=== PATIENT | female | born 1950 | race Caucasian/White ===

== ENCOUNTER 2020-11-27 13:59 | Emergency (ER) | payer MEDICARE ==
[~2020-11-27 13:59] MED LIST: PHENERGAN 25 MG25 M1 PO; ZOFRAN ODT 4 MG4 MG SL; ZOFRAN4 MG PO
[2020-11-27 16:07] LABS: HEMOGLOBIN 15.5 gm/dl (12.3-15.3); RED BLOOD COUNT 4.99 M/UL (4.00-5.10); WHITE BLOOD COUNT 7.9 K/UL (4.5-11.0)
[2020-11-27 16:29] LABS: BUN/CREATININE RATIO 17 (0-10)
== END 2020-11-27 18:06 | disposition home or self-care (01) ==
LOC: ER1 13:59
PROVIDERS: Emergency Medicine
DX: R07.89 Other chest pain (principal); R00.0 Tachycardia, unspecified; Z20.822 Contact with and (suspected) exposure to COVID-19; I10 Essential (primary) hypertension; E78.5 Hyperlipidemia, unspecified; Z90.710 Acquired absence of both cervix and uterus
CPT/HCPCS: 36415; 71045; 80053; 82550; 82553; 83874; 84439; 84443; 84484; 85025; 85379; 93005; 99285; U0002

== ENCOUNTER 2021-05-29 04:30 | Emergency (ER) | payer MEDICARE ==
[2021-05-29 05:11] LABS: HEMOGLOBIN 13.9 gm/dl (12.3-15.3); RED BLOOD COUNT 4.56 M/UL (4.00-5.10); WHITE BLOOD COUNT 5.6 K/UL (4.5-11.0)
[2021-05-29 05:41] LABS: BUN/CREATININE RATIO 22 (0-10)
[2021-05-29] MEDS ORDERED: ZOFRAN 4 MG TAB4 MG PO (05:41)
== END 2021-05-29 06:39 | disposition home or self-care (01) ==
LOC: ER1 04:30
PROVIDERS: Physician Assistant
DX: R11.2 Nausea with vomiting, unspecified (principal); R03.0 Elevated blood-pressure reading, without diagnosis of hypertension; Z88.2 Allergy status to sulfonamides
CPT/HCPCS: 80053; 81001; 82550; 82553; 83874; 84484; 85025; 87086; 93005; 96374; 99284; J2405

== ENCOUNTER 2021-07-15 18:02 | Emergency (ER) | payer MEDICARE ==
[~2021-07-15 18:02] MED LIST changes: +ZOFRAN 4 MG TAB4 MG PO
[2021-07-15 19:28] LABS: HEMOGLOBIN 14.7 gm/dl (12.3-15.3); RED BLOOD COUNT 4.86 M/UL (4.00-5.10); WHITE BLOOD COUNT 8.6 K/UL (4.5-11.0)
[2021-07-15 19:58] LABS: BUN/CREATININE RATIO 14 (0-10)
== END 2021-07-16 01:21 | disposition home or self-care (01) ==
LOC: ER1 18:02
PROVIDERS: Physician Assistant
DX: R07.9 Chest pain, unspecified (principal); I10 Essential (primary) hypertension; Z88.0 Allergy status to penicillin
CPT/HCPCS: 71045; 80053; 81001; 82550; 82553; 83880; 84484; 85025; 85379; 85610; 85730; 93005; 99285